=== PATIENT | male | born 1970 | race Caucasian/White ===

== ENCOUNTER 2017-07-24 06:52 | Emergency (ER) | payer OTHER ==
[~2017-07-24] VITALS: Ht 177.8 cm; Wt 104.3 kg
[2017-07-24 07:23] LABS: ABSOLUTE EOSINOPHILS 0.1 thou/uL (0.0-0.7); ABSOLUTE LYMPHOCYTES 2.2 thou/uL (0.8-5.3); ABSOLUTE MONOCYTES 0.8 thou/uL (0.0-1.2); BASOPHILS 0.5 %; HEMATOCRIT 45.1 % (42.0-52.0); HEMOGLOBIN 15.5 gm/dL (14.0-18.0); LYMPHOCYTES 23.8 %; MCH 31.5 pg (26.0-34.0); MCHC 34.4 g/dL (28.0-37.0); MCV 91.7 fL (80.0-100.0); MONOCYTES 9.1 %; MPV 8.8 fl. (7.2-11.1); NUCLEATED RBCS 0 /100WBC; PLATELET COUNT* 275 thou/uL (150-400); POLYS 65.6 %; RBC 4.92 mil/uL (4.50-6.00); RDW-CV 13.6 % (10.5-14.5); WBC 9.1 thou/uL (4.0-11.0)
[2017-07-24 07:26] LABS: CALCIUM 8.8 mg/dL (8.5-10.1); CREATININE 1.1 mg/dL (0.6-1.3); POTASSIUM 3.8 mmol/L (3.5-5.1)
[2017-07-24 07:36] LABS: ALBUMIN 3.9 g/dL (3.4-5.0); TOTAL BILIRUBIN 0.2 mg/dL (<0.1-1.0); TOTAL PROTEIN 7.5 g/dL (6.4-8.2)
[2017-07-24 08:02] LABS: URINE BILIRUBIN NEGATIVE (Negative); URINE BLOOD TRACE (Negative); URINE CLARITY CLEAR; URINE COLOR YELLOW; URINE GLUCOSE-RANDOM NEGATIVE (Negative); URINE KETONES NEGATIVE (Negative); URINE LEUKOCYTES-REFLEX NEGATIVE (Negative); URINE NITRITE-REFLEX NEGATIVE (Negative); URINE PROTEIN NEGATIVE (Negative); URINE UROBILINOGEN 0.2 E.U./dl (0.2-1.0)
[2017-07-24] MEDS ORDERED: HYDROCODON-ACE1 EAC7 PO (08:10)
[2017-07-24] MEDS ORDERED: FLOMAX0.4 MG PO (08:10)
[2017-07-24 08:32] VITALS: BP 149/99
== END 2017-07-24 08:33 | disposition home or self-care (01) ==
LOC: M.ERS 06:52
PROVIDERS: Emergency Medicine
DX: N20.0 Calculus of kidney (principal); Z88.0 Allergy status to penicillin

== ENCOUNTER 2019-06-13 11:50 | Emergency (ER) | payer OTHER ==
[~2019-06-13] VITALS: Ht 177.8 cm; Wt 104.3 kg
[~2019-06-13 11:50] MED LIST: FLOMAX0.4 MG PO; HYDROCODON-ACE1 EAC7 PO
[2019-06-13 12:24] LABS: ABSOLUTE EOSINOPHILS 0.1 thou/uL (0.0-0.7); ABSOLUTE LYMPHOCYTES 2.2 thou/uL (0.8-5.3); ABSOLUTE MONOCYTES 0.8 thou/uL (0.0-1.2); ABSOLUTE NEUTROPHILS 6.1 thou/uL (1.6-8.1); BASOPHILS 0.5 %; EOSINOPHILS 0.7 %; HEMOGLOBIN 15.1 gm/dL (14.0-18.0); LYMPHOCYTES 24.1 %; MCHC 34.3 g/dL (28.0-37.0); MCV 93.3 fL (80.0-100.0); MONOCYTES 8.7 %; MPV 9.1 fl. (7.2-11.1); NUCLEATED RBCS 0 /100WBC; PLATELET COUNT* 292 thou/uL (150-400); RBC 4.71 mil/uL (4.50-6.00); WBC 9.3 thou/uL (4.0-11.0)
[2019-06-13 12:48] LABS: CALCIUM 8.6 mg/dL (8.5-10.1); CREATININE 1.1 mg/dL (0.6-1.3)
[2019-06-13 12:49] LABS: POTASSIUM 4.5 mmol/L (3.5-5.1)
[2019-06-13 12:52] LABS: ALBUMIN 4.2 g/dL (3.4-5.0); TOTAL BILIRUBIN 0.8 mg/dL (<0.1-1.0); TOTAL PROTEIN 8.1 g/dL (6.4-8.2)
[2019-06-13] MEDS ORDERED: ZOFRAN ODT4 MG PO ×2 (13:42→14:03)
[2019-06-13] MEDS ORDERED: FLOMAX0.4 MG PO ×2 (13:42→14:03)
[2019-06-13] MEDS ORDERED: NORCO 5-325 TA1 EAC1 PO ×2 (13:43→14:03)
[2019-06-13 13:45] LABS: URINE BILIRUBIN NEGATIVE (Negative); URINE BLOOD 3+ (Negative); URINE COLOR YELLOW; URINE GLUCOSE-RANDOM NEGATIVE (Negative); URINE KETONES NEGATIVE (Negative); URINE LEUKOCYTES NEGATIVE (Negative); URINE NITRITE NEGATIVE (Negative); URINE PROTEIN NEGATIVE (Negative); URINE SPECIFIC GRAVITY 1.015 (1.005-1.030); URINE UROBILINOGEN 0.2 E.U./dl (0.2-1.0)
[2019-06-13 13:49] LABS: URINE CLARITY HAZY
[2019-06-13 13:56] LABS: BACTERIA None Seen /HPF (None Seen); CASTS None Seen /LPF (None Seen); MUCUS 0-3 Light strn/LPF (None Seen); SQUAMOUS 0-3 Few /LPF (0-3); URINE RBC >20 Many /HPF (0-2); URINE WBC 0-5 Rare /HPF (0-5)
[2019-06-13 13:57] LABS: CRYSTALS None Seen /LPF (None Seen)
[2019-06-13 14:20] VITALS: BP 139/96
== END 2019-06-13 14:21 | disposition still patient (30) ==
LOC: M.ERS 11:50
PROVIDERS: Physician Assistant
DX: N20.1 Calculus of ureter (principal); R11.2 Nausea with vomiting, unspecified; I10 Essential (primary) hypertension; Z87.442 Personal history of urinary calculi; Z88.0 Allergy status to penicillin

== ENCOUNTER 2019-06-17 07:51 | Inpatient (IN) | payer OTHER ==
[~2019-06-17] VITALS: Ht 177.8 cm; Wt 112.5 kg
[~2019-06-17 07:51] MED LIST changes: +NORCO 5-325 TA1 EAC1 PO; +ZOFRAN ODT4 MG PO
[2019-06-17 07:57] VITALS: BP 139/97; BP 160/102
[2019-06-17 08:14] LABS: ABSOLUTE EOSINOPHILS 0.1 thou/uL (0.0-0.7); ABSOLUTE LYMPHOCYTES 1.7 thou/uL (0.8-5.3); ABSOLUTE MONOCYTES 0.7 thou/uL (0.0-1.2); ABSOLUTE NEUTROPHILS 9.3 thou/uL (1.6-8.1); BASOPHILS 0.3 %; EOSINOPHILS 0.5 %; HEMOGLOBIN 14.9 gm/dL (14.0-18.0); LYMPHOCYTES 14.6 %; MCH 31.8 pg (26.0-34.0); MCHC 34.7 g/dL (28.0-37.0); MCV 91.6 fL (80.0-100.0); MONOCYTES 6.2 %; MPV 8.6 fl. (7.2-11.1); NUCLEATED RBCS 0 /100WBC; PLATELET COUNT* 273 thou/uL (150-400); POLYS 78.4 %; RBC 4.69 mil/uL (4.50-6.00); RDW-CV 13.6 % (10.5-14.5); WBC 11.8 thou/uL (4.0-11.0)
[2019-06-17 08:23] LABS: CALCIUM 8.4 mg/dL (8.5-10.1); CREATININE 1.3 mg/dL (0.6-1.3); POTASSIUM 3.4 mmol/L (3.5-5.1)
[2019-06-17 08:27] LABS: ALBUMIN 4.1 g/dL (3.4-5.0); TOTAL BILIRUBIN 0.5 mg/dL (<0.1-1.0); TOTAL PROTEIN 7.5 g/dL (6.4-8.2)
[2019-06-17 08:53] LABS: URINE BILIRUBIN NEGATIVE (Negative); URINE BLOOD 3+ (Negative); URINE CLARITY CLEAR; URINE COLOR YELLOW; URINE GLUCOSE-RANDOM NEGATIVE (Negative); URINE KETONES NEGATIVE (Negative); URINE LEUKOCYTES-REFLEX NEGATIVE (Negative); URINE NITRITE-REFLEX NEGATIVE (Negative); URINE PROTEIN NEGATIVE (Negative); URINE SPECIFIC GRAVITY 1.025 (1.005-1.030); URINE UROBILINOGEN 0.2 E.U./dl (0.2-1.0)
[2019-06-17 09:02] LABS: BACTERIA-REFLEX 1-9 Few /HPF (None Seen); CASTS None Seen /LPF (None Seen); CRYSTALS None Seen /LPF (None Seen); MUCUS 0-3 Light strn/LPF (None Seen); SQUAMOUS 0-3 Few /LPF (0-3); URINE RBC 3-10 Few /HPF (0-2); URINE WBC-REFLEX 0-5 Rare /HPF (0-5)
[2019-06-17 11:02] VITALS: BP 122/74
[2019-06-17 11:30] VITALS: BP 149/88
[2019-06-17] MEDS ORDERED: NORVASC 2.5 MG2.5 M1 PO (13:38)
[2019-06-17 16:00] VITALS: BP 134/96
--- NOTE | 2019-06-17 16:41 | EKG ---
[place] [address] ELECTROCARDIOGRAM REPORT Name: SHAUNNA MONTENEGRO II Room: [address] ADM IN M.R.#: [id number] Admission: 06/17/19 Attend Phys: Kwasi Baer MD Discharge: Date of : 74 Report #: [id number] THIS REPORT FOR: //name// [facility] Test Date: 2019-06-17 Test Time: 16:32:58 Pat Name: SHAUNNA MONTENEGRO Department: Room: [address] Gender: M Managed Services Consultant: : 1970 Requested By: Sarah Pearlta Order Number: [id number] Johanna MD: Jose Acosta Measurements Intervals [place] Rate: 72 P: 31 NC: 184 QRS: -12 QRSD: 102 T: 8 QT: 405 QTc: 444 Interpretive Statements Sinus rhythm Left ventricular hypertrophy, by voltage No previous ECG available for comparison Electronically Signed On 06-17-2019 16:40:57 [employer] by Jose Acosta [email or web address] <ELECTRONICALLY SIGNED> By: Jose Acosta MD, [facility] 06/17/19 1640 1632 31 Jose Acosta MD, FACC /EPI
[2019-06-17 22:26] VITALS: BP 122/67
[2019-06-18 01:19] VITALS: BP 122/67
[2019-06-18 06:57] LABS: ABSOLUTE EOSINOPHILS 0.1 thou/uL (0.0-0.7); ABSOLUTE LYMPHOCYTES 1.9 thou/uL (0.8-5.3); ABSOLUTE MONOCYTES 0.6 thou/uL (0.0-1.2); ABSOLUTE NEUTROPHILS 4.6 thou/uL (1.6-8.1); BASOPHILS 0.4 %; EOSINOPHILS 0.9 %; HEMATOCRIT 39.1 % (42.0-52.0); HEMOGLOBIN 13.7 gm/dL (14.0-18.0); MCH 32.5 pg (26.0-34.0); MCHC 35.1 g/dL (28.0-37.0); MCV 92.7 fL (80.0-100.0); MONOCYTES 8.9 %; MPV 9.4 fl. (7.2-11.1); NUCLEATED RBCS 0 /100WBC; PLATELET COUNT* 235 thou/uL (150-400); POLYS 63.8 %; RBC 4.22 mil/uL (4.50-6.00); RDW-CV 13.9 % (10.5-14.5); WBC 7.2 thou/uL (4.0-11.0)
[2019-06-18 07:11] LABS: CALCIUM 7.9 mg/dL (8.5-10.1); POTASSIUM 3.5 mmol/L (3.5-5.1)
[2019-06-18 10:05] VITALS: BP 138/84
[2019-06-18 11:03] VITALS: BP 122/67
[2019-06-18] MEDS ORDERED: CIPRO500 M1 PO (11:17)
[2019-06-18] MEDS ORDERED: LEVSIN0.125 MG SUBLING (11:18)
[2019-06-18] MEDS ORDERED: PYRIDIUM200 MG PO (11:19)
[2019-06-18] MEDS ORDERED: NORCO 5-325 TA1 EAC1 PO (11:19)
--- NOTE | 2019-06-25 08:29 | OP ---
[address] [address] OPERATIVE REPORT Name: SHAUNNA MONTENEGRO II Room: [address] IN M.R.#: [id number] Admission: 06/17/19 Attend Phys: Kwasi Baer MD Discharge: 06/18/19 Date of : 74 Report #: [id number] THIS REPORT FOR: //name// CC: [facility] Kwasi Baer Alen [facility] DATE OF SERVICE: 06/18/2019 PREOPERATIVE DIAGNOSIS: Right ureteral obstruction. POSTOPERATIVE DIAGNOSIS: Right ureteral obstruction. PROCEDURE PERFORMED: Cystoscopy, right retrograde pyelogram, right distal ureteroscopy and double-J stent placement. SURGEON: Roberto Suggs MD COMPLICATIONS: None. SPECIMENS: None. DRAINS: A 6 x 28 cm stent in the right ureter. ANESTHETIC: General. BLOOD LOSS: Negligible. STATEMENT OF MEDICAL INDICATIONS: This is a 49-year-old male who has presented twice to the [facility] last week with right sided flank pain and nausea. He was discharged home as he had a 2-3 mm right distal ureteral stone on MET, but returned with continued pain. He has been presented the options of management, knows that there is a high chance that this stone should pass spontaneously; however, he says it has been going on for a week and he wants to have it addressed. He has not had pain in the prior 12 hours prior to surgery. However, I did give him the option to not do the procedure and again either attempt to pass the stone with high likelihood, but he insists that he wants to proceed with the procedure. Therefore, we discussed ureteroscopic stone manipulation. In advance, he understands the procedure, risks, potential complications including but not limited to bleeding, infection, scar tissue formation, injury to the urinary tract or adjacent structures or need for further procedures. He does understand the need for stent and the side effects that he would be expected to experience from the stent. He accepts all these and wishes to proceed. DESCRIPTION OF PROCEDURE: Therefore, following informed consent, [place] [address] OPERATIVE REPORT Name: SHAUNNA MONTENEGRO II Room: [address]#: [id number] Admission: 06/17/19 Attend Phys: Kwasi Baer MD Discharge: 06/18/19 Date of : 74 Report #: [id number] was taken to the operating room and placed under general anesthesia. He was prepped and draped in sterile fashion in dorsal lithotomy position. Cystoscopy was carried out. The patient has a normal anterior urethra, nonobstructing prostate and the bladder was free of lesions. Careful inspection of the bladder did not reveal a stone within the bladder and presumably the patient had his urine stream throughout the night. Retrograde pyelogram was performed, which did not reveal a significant filling defect in order it revealed significant hydronephrosis. Therefore, despite the radiographic findings, I felt that the patient has not passed the stone and did want to proceed with stone manipulation. Therefore, a floppy tipped guidewire was advanced through the Pollack catheter up into the renal collecting system under fluoroscopic guidance. A semi-rigid ureteroscope was attempted to be inserted alongside the wire. There was narrowing in the distal ureter and therefore the inner stylet of 04/02 ureteral access sheath was placed over the wire into the distal third ureter. This was tight on the inner sheath, attempt was made to pass the ureteral access sheath itself, which would pass only short distance up the distal ureter. Flexible ureteroscope was then passed through this, the ureter could be identified. There was a narrowing at that level, there clearly was ureteral mucosa; however, I could not advance the scope any further and there is some chance that the stone was more proximal to this level. Therefore, at this point in time, it was felt to be too much risk to try to perform further manipulation to advance the ureteroscope further. There was no dilation on the x-ray and therefore, the wire was backloaded up into the renal collecting system, confirmed in position with a Pollack catheter. Cystoscope backloaded over the wire and a 6 x 28 cm stent was placed with a coil in the renal pelvis and a coil in the bladder. Bladder was drained. The patient given a Uro-Jet per urethra, B and O suppository and Toradol injection, returned to recovery room in satisfactory condition. Due to the narrowing and difficulty with passing the scope, I would recommend leaving the stent in place for 2 weeks. At that point in time, the stone is so small, I would suspect the stent could be removed and any residual stone would pass if not already passed. A CT scan could be considered to confirm that there is no stone alongside the stent at that time. This ended the procedure. Sponge and needle counts were reported as correct and the patient returned to recovery room in satisfactory condition. <ELECTRONICALLY SIGNED> By: Roberto Suggs MD 06/25/19 0829 0917 [id number] Suggs MD /von
== END 2019-06-18 13:00 | disposition home or self-care (01) | DRG 661 ==
LOC: M.ERS 07:51 → M.TBA-ER 09:48 → M.3W 09:48
PROVIDERS: Family Medicine; ADMIT Internal Medicine
PROC: 0T768DZ Dilation of Right Ureter with Intraluminal Device, Via Natural or Artificial Opening Endoscopic (ICD-10-PCS; principal; 2019-06-18)
PROC: BT1D1ZZ Fluoroscopy of Right Kidney, Ureter and Bladder using Low Osmolar Contrast (ICD-10-PCS; 2019-06-18)
PROC: 0TC68ZZ Extirpation of Matter from Right Ureter, Via Natural or Artificial Opening Endoscopic (ICD-10-PCS; 2019-06-18)
DX: N13.2 Hydronephrosis with renal and ureteral calculous obstruction (principal); E87.6 Hypokalemia; E66.9 Obesity, unspecified; D72.829 Elevated white blood cell count, unspecified; N21.1 Calculus in urethra; I10 Essential (primary) hypertension; Z68.35 Body mass index [BMI] 35.0-35.9, adult; Z79.899 Other long term (current) drug therapy; Z88.0 Allergy status to penicillin; Z72.89 Other problems related to lifestyle; R31.9 Hematuria, unspecified

== ENCOUNTER → 2020-06-23 | Outpatient (CLI) | payer OTHER ==
[~2020-06-23] MED LIST changes: +CIPRO500 M1 PO; +LEVSIN0.125 MG SUBLING; +NORVASC 2.5 MG2.5 M1 PO; +PYRIDIUM200 MG PO
== END ==
LOC: M.RAD 16:00
PROVIDERS: ATTEND Internal Medicine
DX: R06.02 Shortness of breath (principal)